=== PATIENT | female | born 1940 | race Caucasian/White ===

== ENCOUNTER 2017-12-13 12:41 | Inpatient (IN) ==
[2017-12-14 14:33] VITALS: BP 114/56
== END 2017-12-14 16:02 | disposition home or self-care (01) | DRG 811 ==
LOC: EDBD → EDUNIT# → N.ED 12:41 → N.EDINP 14:50 → N.4E 16:26
PROVIDERS: ADMIT Internal Medicine; ATTEND Internal Medicine

== ENCOUNTER 2018-05-24 10:46 | Inpatient (IN) ==
[2018-05-24] MEDS ORDERED: ALBUTEROL NEB SOLN 5 MG/ML 20 ML/BOTTLE CONT NEB STA (11:19)
[2018-05-24] MEDS ORDERED: SODIUM CHLORIDE 0.9% 1,000 ML IV SCH (11:30)
[2018-05-24 11:54] LABS: ABG Base Excess 6.7 MMOL/L (-2.5-2.5); ABG HCO3 30.5 MMOL/L (20-26); ABG Oxygen Saturation 96.3 % (95-100); ABG PH 7.305 (7.35-7.45); ABG PO2 97.5 MM HG (80-95); ABG TCO2 32.3 MMOL/L (23-27)
[2018-05-24 12:00] LABS: ABG PCO2 71.4 MM HG (35-48)
[2018-05-24 12:00] LABS: Basophils % 0.3 % (0.0-0.8); Eosinophils % 0.1 % (0.00-10.9); Hematocrit 38.8 VOL% (35.7-47.0); Immature Granulocytes % 2.3 %; Immature Granulocytes Absolute 0.17 #; Mean Corpuscular HGB Conc 29.6 GM/DL (32-36); Mean Corpuscular Hemoglobin 26 PG (27-34); Mean Platelet Volume 10.8 FL (9.6-12.0); Monocytes % 13.8 % (1.7-12.7); NRBC # 0.23 10*3/uL; Neutrophils # 5.2 10*3/uL (1.4-7.4); Neutrophils % 70.5 % (38.7-73.9); Platelet Count 294 T/CUMM (130-400); Red Blood Count 4.36 MC/CUMM (3.8-5.5); Red Cell Distribution Width 20.3 % (9.3-17.3); White Blood Count 7.3 T/CUMM (4-12)
[2018-05-24 12:01] LABS: Hemoglobin 11.5 GM/DL (12.0-16.0)
[2018-05-24 12:18] LABS: Hypochromasia 1+; Lymphocytes 8 % (20-55); Nucleated Red Blood Cells 2 (0-5); Ovalocytes Slight; Platelet Estimate Adequate; Segmented Neutrophils 79 % (50-85); Total Cells Counted 100
[2018-05-24 12:25] LABS: Albumin 3.9 G/DL (3.4-5.0); Bilirubin,Total 1.6 MG/DL (0.2-1.0); Calcium 8.6 MG/DL (8.5-10.1); Potassium 4.1 MMOL/L (3.5-5.1); Total Protein 7.1 G/DL (6.4-8.3)
[2018-05-24] MEDS ORDERED: LACTULOSE 20 GM/30 ML UDCUP PO PRN (14:59)
[2018-05-24] MEDS ORDERED: guaiFENesin/DM ER 600-30 MG TABLET PO PRN (14:59)
[2018-05-24] MEDS ORDERED: DOCUSATE SODIUM 100 MG CAPSULE PO PRN (14:59)
[2018-05-24] MEDS ORDERED: MAGNESIUM SULF RIDER 4 GM in PREMIX 1 EACH IV PRN (15:23)
[2018-05-24] MEDS ORDERED: MAGNESIUM SULF RIDER 2 GM in PREMIX 1 EACH IV PRN (15:23)
[2018-05-24] MEDS ORDERED: hydrALAZINE 20 MG/1 ML VIAL IV PRN (17:59)
[2018-05-24] MEDS: methylPREDNISolone SOD SUC 40 MG/1 ML VIAL IV SCH ×2 (18:00→23:21)
[2018-05-24] MEDS: ENOXAPARIN 40 MG/0.4 ML SYRINGE SUBCUT SCH (18:00)
[2018-05-24] MEDS: ALBUTEROL/IPRATROPIUM 3 ML NEB RESP TX SCH (19:37)
[2018-05-24] MEDS: BUDESONIDE 0.5 MG/2 ML NEB RESP TX SCH (19:37)
[2018-05-24] MEDS: NYSTATIN POWDER 15 GM BOTTLE TOP SCH (23:21)
[2018-05-25] MEDS: ALBUTEROL/IPRATROPIUM 3 ML NEB RESP TX SCH ×4 (00:16→19:22)
[2018-05-25 06:10] LABS: Hematocrit 36.5 VOL% (35.7-47.0); Immature Granulocytes Absolute 0.11 #; Lymphocytes # 0.4 10*3/uL (1.4-4.0); Lymphocytes % 7.3 % (21.3-54.2); Mean Corpuscular HGB Conc 30.1 GM/DL (32-36); Mean Corpuscular Hemoglobin 27 PG (27-34); Mean Corpuscular Volume 88.4 FL (87-102); Mean Platelet Volume 10.5 FL (9.6-12.0); Monocytes # 0.2 10*3/uL (0.11-0.8); Monocytes % 3.6 % (1.7-12.7); NRBC # 0.13 10*3/uL; Neutrophils # 4.9 10*3/uL (1.4-7.4); Neutrophils % 87.1 % (38.7-73.9); Platelet Count 269 T/CUMM (130-400); Red Blood Count 4.13 MC/CUMM (3.8-5.5); Red Cell Distribution Width 20.2 % (9.3-17.3); White Blood Count 5.6 T/CUMM (4-12)
[2018-05-25] MEDS: LEVOTHYROXINE 100 MCG TABLET PO SCH (06:33)
[2018-05-25 06:47] LABS: Albumin 3.3 G/DL (3.4-5.0); Bilirubin,Total 1.4 MG/DL (0.2-1.0); Calcium 8.8 MG/DL (8.5-10.1); Osmolality,Calculated 279.1 MOS/KG (273-304); Risk Ratio 7.81; Thyroid Stimulating Hormone 0.308 uIU/ml (0.358-3.74); Total Protein 6.8 G/DL (6.4-8.3); VLDL CHOLESTEROL 16.8 MG/DL
[2018-05-25] MEDS: BUDESONIDE 0.5 MG/2 ML NEB RESP TX SCH ×2 (07:32→19:22)
[2018-05-25] MEDS: methylPREDNISolone SOD SUC 40 MG/1 ML VIAL IV SCH ×2 (08:40→16:33)
[2018-05-25] MEDS: NYSTATIN POWDER 15 GM BOTTLE TOP SCH ×3 (08:41→20:42)
[2018-05-25] MEDS: LOSARTAN 50 MG TABLET PO SCH (08:41)
[2018-05-25] MEDS: PANTOPRAZOLE 40 MG TABLET PO SCH (08:41)
[2018-05-25] MEDS: ASPIRIN CHEW 81 MG TABLET PO SCH (08:41)
[2018-05-25] MEDS ORDERED: FUROSEMIDE 40 MG/4 ML VIAL IV ONE (10:00)
[2018-05-25] MEDS: THEOPHYLLINE ER (24 HR) 400 MG CAPSULE PO SCH (10:23)
[2018-05-25] MEDS: DIGOXIN 0.125 MG TABLET PO SCH (12:17)
[2018-05-25] MEDS ORDERED: DIAZEPAM 2 MG TABLET PO PRN (14:13)
[2018-05-25] MEDS: FUROSEMIDE 80 MG TABLET PO SCH (14:59)
[2018-05-25] MEDS: ENOXAPARIN 40 MG/0.4 ML SYRINGE SUBCUT SCH (16:33)
[2018-05-25] MEDS: FUROSEMIDE 40 MG TABLET PO SCH (16:33)
[2018-05-26] MEDS: ALBUTEROL/IPRATROPIUM 3 ML NEB RESP TX SCH ×4 (00:27→20:02)
[2018-05-26] MEDS: methylPREDNISolone SOD SUC 40 MG/1 ML VIAL IV SCH ×3 (01:29→16:25)
[2018-05-26 06:02] LABS: Basophils % 0.1 % (0.0-0.8); Hematocrit 36.4 VOL% (35.7-47.0); Immature Granulocytes % 1.3 %; Immature Granulocytes Absolute 0.09 #; Lymphocytes # 0.3 10*3/uL (1.4-4.0); Lymphocytes % 4.2 % (21.3-54.2); Mean Corpuscular HGB Conc 30.2 GM/DL (32-36); Mean Corpuscular Hemoglobin 26 PG (27-34); Mean Corpuscular Volume 86.7 FL (87-102); Mean Platelet Volume 10.2 FL (9.6-12.0); Monocytes # 0.4 10*3/uL (0.11-0.8); Monocytes % 5.5 % (1.7-12.7); NRBC # 0.08 10*3/uL; Neutrophils # 6.3 10*3/uL (1.4-7.4); Neutrophils % 88.9 % (38.7-73.9); Platelet Count 290 T/CUMM (130-400); Red Cell Distribution Width 20.1 % (9.3-17.3); White Blood Count 7.1 T/CUMM (4-12)
[2018-05-26] MEDS: LEVOTHYROXINE 100 MCG TABLET PO SCH (06:22)
[2018-05-26 06:27] LABS: Albumin 3.4 G/DL (3.4-5.0); Bilirubin,Total 1.6 MG/DL (0.2-1.0); Calcium 9.1 MG/DL (8.5-10.1); Osmolality,Calculated 280.8 MOS/KG (273-304); Potassium 2.9 MMOL/L (3.5-5.1); Total Protein 6.6 G/DL (6.4-8.3)
[2018-05-26 06:29] LABS: Anisocytosis 2+; Band Neutrophils 7 % (0-10); Lymphocytes 5 % (20-55); Nucleated Red Blood Cells 1 (0-5); Platelet Estimate Normal; Segmented Neutrophils 84 % (50-85); Target Cells Few; Total Cells Counted 100
[2018-05-26 06:30] LABS: Hypochromasia Slight; Macrocytosis Slight; Polychromasia Slight
[2018-05-26] MEDS: BUDESONIDE 0.5 MG/2 ML NEB RESP TX SCH ×2 (08:35→20:03)
[2018-05-26] MEDS: POTASSIUM CHLORIDE 20 MEQ TABLET PO PRN ×4 (08:48→16:25)
[2018-05-26] MEDS: ASPIRIN CHEW 81 MG TABLET PO SCH (08:48)
[2018-05-26] MEDS: LOSARTAN 50 MG TABLET PO SCH (08:48)
[2018-05-26] MEDS: PANTOPRAZOLE 40 MG TABLET PO SCH (08:48)
[2018-05-26] MEDS: FUROSEMIDE 80 MG TABLET PO SCH (08:48)
[2018-05-26] MEDS: THEOPHYLLINE ER (24 HR) 400 MG CAPSULE PO SCH (08:48)
[2018-05-26] MEDS: NYSTATIN POWDER 15 GM BOTTLE TOP SCH ×3 (08:49→21:39)
[2018-05-26] MEDS: DIGOXIN 0.125 MG TABLET PO SCH (13:24)
[2018-05-26] MEDS ORDERED: DIAZEPAM 2 MG TABLET PO PRN (15:37)
[2018-05-26] MEDS: ENOXAPARIN 40 MG/0.4 ML SYRINGE SUBCUT SCH (16:25)
[2018-05-26] MEDS: FUROSEMIDE 40 MG TABLET PO SCH (16:25)
[2018-05-27] MEDS: methylPREDNISolone SOD SUC 40 MG/1 ML VIAL IV SCH ×3 (01:15→16:36)
[2018-05-27] MEDS: ALBUTEROL/IPRATROPIUM 3 ML NEB RESP TX SCH ×4 (01:28→19:47)
[2018-05-27 05:26] LABS: Hemoglobin 11.1 GM/DL (12.0-16.0); Immature Granulocytes % 0.6 %; Immature Granulocytes Absolute 0.06 #; Lymphocytes # 0.3 10*3/uL (1.4-4.0); Lymphocytes % 2.6 % (21.3-54.2); Mean Corpuscular Hemoglobin 26 PG (27-34); Mean Corpuscular Volume 87.5 FL (87-102); Mean Platelet Volume 10.4 FL (9.6-12.0); Monocytes # 0.5 10*3/uL (0.11-0.8); Monocytes % 5.1 % (1.7-12.7); NRBC # 0.05 10*3/uL; Neutrophils # 9.2 10*3/uL (1.4-7.4); Neutrophils % 91.7 % (38.7-73.9); Platelet Count 290 T/CUMM (130-400); Red Blood Count 4.23 MC/CUMM (3.8-5.5); Red Cell Distribution Width 20.8 % (9.3-17.3)
[2018-05-27 05:51] LABS: Hypochromasia Slight; Lymphocytes 1 % (20-55); Nucleated Red Blood Cells 1 (0-5); Platelet Estimate Normal; Polychromasia Few; Segmented Neutrophils 97 % (50-85); Total Cells Counted 100
[2018-05-27 06:01] LABS: Albumin 3.3 G/DL (3.4-5.0); Bilirubin,Total 1.4 MG/DL (0.2-1.0); Potassium 3.4 MMOL/L (3.5-5.1); Total Protein 6.3 G/DL (6.4-8.3)
[2018-05-27] MEDS: LEVOTHYROXINE 100 MCG TABLET PO SCH (06:05)
[2018-05-27] MEDS: THEOPHYLLINE ER (24 HR) 400 MG CAPSULE PO SCH (08:29)
[2018-05-27] MEDS: LOSARTAN 50 MG TABLET PO SCH (08:29)
[2018-05-27] MEDS: NYSTATIN POWDER 15 GM BOTTLE TOP SCH ×3 (08:29→22:18)
[2018-05-27] MEDS: PANTOPRAZOLE 40 MG TABLET PO SCH (08:29)
[2018-05-27] MEDS: POTASSIUM CHLORIDE 20 MEQ TABLET PO PRN ×4 (08:29→22:10)
[2018-05-27] MEDS: FUROSEMIDE 80 MG TABLET PO SCH (08:29)
[2018-05-27] MEDS: ASPIRIN CHEW 81 MG TABLET PO SCH (08:29)
[2018-05-27] MEDS: BUDESONIDE 0.5 MG/2 ML NEB RESP TX SCH ×2 (08:31→19:47)
[2018-05-27 10:59] LABS: ABG Base Excess 7.7 MMOL/L (-2.5-2.5); ABG HCO3 31.2 MMOL/L (20-26); ABG Oxygen Saturation 82.5 % (95-100); ABG PCO2 51.7 MM HG (35-48); ABG PH 7.422 (7.35-7.45); ABG PO2 47.7 MM HG (80-95); ABG TCO2 30.1 MMOL/L (23-27)
[2018-05-27] MEDS: ONDANSETRON 4 MG/2 ML VIAL IV PRN (11:01)
[2018-05-27] MEDS: DIGOXIN 0.125 MG TABLET PO SCH (14:00)
[2018-05-27] MEDS: FUROSEMIDE 40 MG TABLET PO SCH (16:36)
[2018-05-27] MEDS: ENOXAPARIN 40 MG/0.4 ML SYRINGE SUBCUT SCH (16:36)
[2018-05-27] MEDS ORDERED: FLUCONAZOLE 200 MG TABLET PO ONE (19:00)
[2018-05-28] MEDS: methylPREDNISolone SOD SUC 40 MG/1 ML VIAL IV SCH ×4 (00:03→16:49)
[2018-05-28] MEDS: ALBUTEROL/IPRATROPIUM 3 ML NEB RESP TX SCH ×4 (00:22→19:34)
[2018-05-28] MEDS: LEVOTHYROXINE 100 MCG TABLET PO SCH (06:37)
[2018-05-28] MEDS: BUDESONIDE 0.5 MG/2 ML NEB RESP TX SCH ×2 (07:51→19:34)
[2018-05-28 08:28] LABS: Calcium 8.9 MG/DL (8.5-10.1); Osmolality,Calculated 287.4 MOS/KG (273-304); Potassium 3.9 MMOL/L (3.5-5.1)
[2018-05-28] MEDS: PANTOPRAZOLE 40 MG TABLET PO SCH (08:28)
[2018-05-28] MEDS: LOSARTAN 50 MG TABLET PO SCH (08:28)
[2018-05-28] MEDS: NYSTATIN POWDER 15 GM BOTTLE TOP SCH ×3 (08:28→22:06)
[2018-05-28] MEDS: THEOPHYLLINE ER (24 HR) 400 MG CAPSULE PO SCH (08:28)
[2018-05-28] MEDS: SERTRALINE 50 MG TABLET PO SCH (08:28)
[2018-05-28] MEDS: FLUCONAZOLE 200 MG TABLET PO SCH (08:28)
[2018-05-28] MEDS: ASPIRIN CHEW 81 MG TABLET PO SCH (08:28)
[2018-05-28] MEDS: FUROSEMIDE 80 MG TABLET PO SCH (08:29)
[2018-05-28 08:34] LABS: Hematocrit 36.8 VOL% (35.7-47.0); Hemoglobin 11.2 GM/DL (12.0-16.0); Immature Granulocytes % 0.9 %; Immature Granulocytes Absolute 0.09 #; Lymphocytes # 0.2 10*3/uL (1.4-4.0); Lymphocytes % 2.1 % (21.3-54.2); Mean Corpuscular HGB Conc 30.4 GM/DL (32-36); Mean Corpuscular Hemoglobin 27 PG (27-34); Mean Corpuscular Volume 87.2 FL (87-102); Mean Platelet Volume 10.4 FL (9.6-12.0); Monocytes # 0.6 10*3/uL (0.11-0.8); Monocytes % 6.5 % (1.7-12.7); NRBC # 0.06 10*3/uL; Neutrophils # 8.8 10*3/uL (1.4-7.4); Neutrophils % 90.5 % (38.7-73.9); Platelet Count 280 T/CUMM (130-400); Red Blood Count 4.22 MC/CUMM (3.8-5.5); Red Cell Distribution Width 20.5 % (9.3-17.3); White Blood Count 9.7 T/CUMM (4-12)
[2018-05-28 09:49] LABS: Lymphocytes 2 % (20-55); Polychromasia Slight; Segmented Neutrophils 95 % (50-85); Total Cells Counted 100
[2018-05-28 09:50] LABS: Anisocytosis 1+; Hypochromasia 2+; Microcytosis 1+; Ovalocytes Few; Poikilocytosis 1+; Target Cells Slight
[2018-05-28 09:51] LABS: Platelet Estimate Adequate; Schistocytes Slight; Stomatocytes Slight; Tear Drop Cells Slight
[2018-05-28] MEDS: DIGOXIN 0.125 MG TABLET PO SCH (14:55)
[2018-05-28] MEDS: ENOXAPARIN 40 MG/0.4 ML SYRINGE SUBCUT SCH (14:59)
[2018-05-28] MEDS ORDERED: ALPRAZolam 0.25 MG TABLET PO PRN (15:20)
[2018-05-28] MEDS: DICLOFENAC 1% GEL 100 GM TUBE TOP SCH ×2 (18:22→22:06)
[2018-05-29] MEDS: ALBUTEROL/IPRATROPIUM 3 ML NEB RESP TX SCH ×4 (01:20→19:23)
[2018-05-29] MEDS: methylPREDNISolone SOD SUC 40 MG/1 ML VIAL IV SCH ×2 (04:35→16:19)
[2018-05-29 05:49] LABS: Basophils % 0.1 % (0.0-0.8); Hematocrit 38.9 VOL% (35.7-47.0); Hemoglobin 11.7 GM/DL (12.0-16.0); Immature Granulocytes Absolute 0.11 #; Lymphocytes # 0.2 10*3/uL (1.4-4.0); Lymphocytes % 1.8 % (21.3-54.2); Mean Corpuscular HGB Conc 30.1 GM/DL (32-36); Mean Corpuscular Hemoglobin 26 PG (27-34); Mean Corpuscular Volume 87.8 FL (87-102); Mean Platelet Volume 10.3 FL (9.6-12.0); Monocytes # 0.7 10*3/uL (0.11-0.8); Monocytes % 5.8 % (1.7-12.7); NRBC # 0.06 10*3/uL; Neutrophils # 10.2 10*3/uL (1.4-7.4); Neutrophils % 91.3 % (38.7-73.9); Platelet Count 280 T/CUMM (130-400); Red Blood Count 4.43 MC/CUMM (3.8-5.5); Red Cell Distribution Width 20.6 % (9.3-17.3); White Blood Count 11.1 T/CUMM (4-12)
[2018-05-29 06:08] LABS: Calcium 9.3 MG/DL (8.5-10.1); Osmolality,Calculated 288.4 MOS/KG (273-304); Potassium 3.5 MMOL/L (3.5-5.1)
[2018-05-29 06:27] LABS: Band Neutrophils 3 % (0-10); Hypochromasia 1+; Lymphocytes 1 % (20-55); Segmented Neutrophils 92 % (50-85); Target Cells Slight; Total Cells Counted 100
[2018-05-29 06:28] LABS: Microcytosis 1+; Ovalocytes Slight; Platelet Estimate Normal
[2018-05-29 06:46] LABS: Theophylline 22.4 UG/ML (10-20)
[2018-05-29] MEDS: BUDESONIDE 0.5 MG/2 ML NEB RESP TX SCH ×2 (07:53→19:23)
[2018-05-29] MEDS: ASPIRIN CHEW 81 MG TABLET PO SCH (09:07)
[2018-05-29] MEDS: LOSARTAN 50 MG TABLET PO SCH (09:07)
[2018-05-29] MEDS: THEOPHYLLINE ER (24 HR) 400 MG CAPSULE PO SCH (09:08)
[2018-05-29] MEDS: FLUCONAZOLE 200 MG TABLET PO SCH (09:09)
[2018-05-29] MEDS: PANTOPRAZOLE 40 MG TABLET PO SCH (09:09)
[2018-05-29] MEDS: LEVOTHYROXINE 100 MCG TABLET PO SCH (09:09)
[2018-05-29] MEDS: LIDOCAINE 5% PATCH TRANSDERM SCH (09:10)
[2018-05-29] MEDS: NYSTATIN POWDER 15 GM BOTTLE TOP SCH ×3 (09:12→21:20)
[2018-05-29] MEDS: SERTRALINE 50 MG TABLET PO SCH (09:13)
[2018-05-29] MEDS: DICLOFENAC 1% GEL 100 GM TUBE TOP SCH ×4 (09:15→21:19)
[2018-05-29] MEDS: DIGOXIN 0.125 MG TABLET PO SCH (13:34)
[2018-05-29] MEDS ORDERED: SODIUM CHLORIDE 0.9% 250 ML IV ONE (14:22)
[2018-05-29] MEDS: FUROSEMIDE 40 MG/5 ML UDCUP PO SCH (15:04)
[2018-05-29] MEDS: ENOXAPARIN 40 MG/0.4 ML SYRINGE SUBCUT SCH (15:07)
[2018-05-30] MEDS: ALBUTEROL/IPRATROPIUM 3 ML NEB RESP TX SCH ×4 (01:06→19:30)
[2018-05-30] MEDS: methylPREDNISolone SOD SUC 40 MG/1 ML VIAL IV SCH (04:30)
[2018-05-30 05:26] LABS: Calcium 8.7 MG/DL (8.5-10.1); Osmolality,Calculated 291.5 MOS/KG (273-304); Potassium 3.7 MMOL/L (3.5-5.1)
[2018-05-30 05:40] LABS: Basophils % 0.1 % (0.0-0.8); Hematocrit 39.9 VOL% (35.7-47.0); Immature Granulocytes % 1.2 %; Immature Granulocytes Absolute 0.14 #; Lymphocytes # 0.2 10*3/uL (1.4-4.0); Lymphocytes % 1.8 % (21.3-54.2); Mean Corpuscular HGB Conc 29.6 GM/DL (32-36); Mean Corpuscular Hemoglobin 26 PG (27-34); Mean Corpuscular Volume 87.9 FL (87-102); Mean Platelet Volume 10.7 FL (9.6-12.0); Monocytes # 1.2 10*3/uL (0.11-0.8); Monocytes % 10.7 % (1.7-12.7); NRBC # 0.03 10*3/uL; Neutrophils % 86.2 % (38.7-73.9); Platelet Count 270 T/CUMM (130-400); Red Blood Count 4.54 MC/CUMM (3.8-5.5); Red Cell Distribution Width 20.5 % (9.3-17.3); White Blood Count 11.6 T/CUMM (4-12)
[2018-05-30 05:42] LABS: Hemoglobin 11.9 GM/DL (12.0-16.0)
[2018-05-30 06:01] LABS: Anisocytosis 2+; Band Neutrophils 4 % (0-10); Lymphocytes 2 % (20-55); Nucleated Red Blood Cells 1 (0-5); Platelet Estimate Normal; Segmented Neutrophils 89 % (50-85); Target Cells Few; Total Cells Counted 100
[2018-05-30] MEDS: LEVOTHYROXINE 100 MCG TABLET PO SCH (07:12)
[2018-05-30] MEDS: BUDESONIDE 0.5 MG/2 ML NEB RESP TX SCH ×2 (07:49→19:30)
[2018-05-30] MEDS: FUROSEMIDE 40 MG/5 ML UDCUP PO SCH (08:41)
[2018-05-30] MEDS: PANTOPRAZOLE 40 MG TABLET PO SCH (08:42)
[2018-05-30] MEDS: LOSARTAN 50 MG TABLET PO SCH (08:42)
[2018-05-30] MEDS: SERTRALINE 50 MG TABLET PO SCH (08:42)
[2018-05-30] MEDS: LIDOCAINE 5% PATCH TRANSDERM SCH (08:42)
[2018-05-30] MEDS: FLUCONAZOLE 200 MG TABLET PO SCH (08:42)
[2018-05-30] MEDS: ASPIRIN CHEW 81 MG TABLET PO SCH (08:42)
[2018-05-30] MEDS: DICLOFENAC 1% GEL 100 GM TUBE TOP SCH ×4 (08:43→21:55)
[2018-05-30] MEDS: NYSTATIN POWDER 15 GM BOTTLE TOP SCH ×3 (08:43→15:23)
[2018-05-30] MEDS ORDERED: SODIUM CHLORIDE 0.9% 1,000 ML IV SCH (09:30)
[2018-05-30] MEDS: predniSONE 20 MG TABLET PO SCH (10:31)
[2018-05-30] MEDS: NEBIVOLOL 5 MG TABLET PO SCH (10:31)
[2018-05-30] MEDS: DIGOXIN 0.125 MG TABLET PO SCH (12:16)
[2018-05-30] MEDS: SODIUM CHLORIDE 0.9% 1,000 ML IV SCH (13:27)
[2018-05-30] MEDS: ONDANSETRON 4 MG/2 ML VIAL IV PRN ×2 (15:04→22:35)
[2018-05-30] MEDS: ENOXAPARIN 40 MG/0.4 ML SYRINGE SUBCUT SCH (15:05)
[2018-05-31] MEDS: ALBUTEROL/IPRATROPIUM 3 ML NEB RESP TX SCH ×3 (00:51→13:12)
[2018-05-31] MEDS: SODIUM CHLORIDE 0.9% 1,000 ML IV SCH (01:02)
[2018-05-31 05:22] LABS: Calcium 8.4 MG/DL (8.5-10.1); Potassium 3.6 MMOL/L (3.5-5.1)
[2018-05-31 05:43] LABS: Basophils % 0.1 % (0.0-0.8); Hematocrit 37.6 VOL% (35.7-47.0); Hemoglobin 11.3 GM/DL (12.0-16.0); Immature Granulocytes % 1.3 %; Immature Granulocytes Absolute 0.15 #; Lymphocytes # 0.2 10*3/uL (1.4-4.0); Lymphocytes % 1.9 % (21.3-54.2); Mean Corpuscular HGB Conc 30.1 GM/DL (32-36); Mean Corpuscular Hemoglobin 26 PG (27-34); Mean Corpuscular Volume 86.6 FL (87-102); Mean Platelet Volume 11.2 FL (9.6-12.0); Monocytes # 1.1 10*3/uL (0.11-0.8); Monocytes % 9.3 % (1.7-12.7); NRBC # 0.02 10*3/uL; Neutrophils % 87.4 % (38.7-73.9); Platelet Count 222 T/CUMM (130-400); Red Blood Count 4.34 MC/CUMM (3.8-5.5); Red Cell Distribution Width 20.1 % (9.3-17.3); White Blood Count 11.4 T/CUMM (4-12)
[2018-05-31 05:53] LABS: Lymphocytes 5 % (20-55); Platelet Estimate Normal; Polychromasia Few; Segmented Neutrophils 92 % (50-85); Total Cells Counted 100
[2018-05-31] MEDS: LEVOTHYROXINE 100 MCG TABLET PO SCH (06:28)
[2018-05-31] MEDS: BUDESONIDE 0.5 MG/2 ML NEB RESP TX SCH (07:00)
[2018-05-31] MEDS: SERTRALINE 50 MG TABLET PO SCH (08:33)
[2018-05-31] MEDS: predniSONE 20 MG TABLET PO SCH (08:34)
[2018-05-31] MEDS: ASPIRIN CHEW 81 MG TABLET PO SCH (08:34)
[2018-05-31] MEDS: LOSARTAN 50 MG TABLET PO SCH (08:34)
[2018-05-31] MEDS: NEBIVOLOL 5 MG TABLET PO SCH (08:34)
[2018-05-31] MEDS: LIDOCAINE 5% PATCH TRANSDERM SCH (08:35)
[2018-05-31] MEDS: NYSTATIN POWDER 15 GM BOTTLE TOP SCH (08:36)
[2018-05-31] MEDS: DICLOFENAC 1% GEL 100 GM TUBE TOP SCH (08:36)
[2018-05-31] MEDS: PANTOPRAZOLE 40 MG TABLET PO SCH (08:36)
[2018-05-31] MEDS ORDERED: POTASSIUM CHLORIDE 20 MEQ PACK PO ONE (08:58)
[2018-05-31] MEDS ORDERED: NEBIVOLOL 10 MG TABLET PO SCH (09:00)
[2018-05-31] MEDS ORDERED: amLODIPine 5 MG TABLET PO SCH (10:30)
[2018-05-31 11:05] LABS: Allen Test Positive
[2018-05-31 11:06] LABS: ABG Base Excess 6.8 MMOL/L (-2.5-2.5); ABG HCO3 30.4 MMOL/L (20-26); ABG PCO2 57.8 MM HG (35-48); ABG PH 7.375 (7.35-7.45); ABG PO2 59.4 MM HG (80-95); ABG TCO2 30.2 MMOL/L (23-27)
[2018-05-31 13:19] VITALS: BP 146/61
[2018-05-31] MEDS: DIGOXIN 0.125 MG TABLET PO SCH (14:23)
[2018-05-31] MEDS ORDERED: FUROSEMIDE 40 MG TABLET PO SCH (16:00)
[2018-05-31] MEDS ORDERED: RIVAROXABAN 10 MG TABLET PO SCH (17:00)
== END 2018-05-31 15:40 | disposition swing bed (61) | DRG 291 ==
LOC: EDBD → EDUNIT# → N.ED 10:46 → N.5E 14:59 → SUATTDRO 14:59 → N.5E 18:41
PROVIDERS: ADMIT Internal Medicine; ATTEND Internal Medicine

== ENCOUNTER 2018-05-31 19:59 | Inpatient (IN) ==
[2018-05-31 20:46] LABS: Basophils % 0.1 % (0.0-0.8); Hematocrit 38.4 VOL% (35.7-47.0); Hemoglobin 11.7 GM/DL (12.0-16.0); Immature Granulocytes % 1.3 %; Immature Granulocytes Absolute 0.25 #; Lymphocytes # 0.3 10*3/uL (1.4-4.0); Lymphocytes % 1.8 % (21.3-54.2); Mean Corpuscular HGB Conc 30.5 GM/DL (32-36); Mean Corpuscular Hemoglobin 27 PG (27-34); Mean Corpuscular Volume 88.1 FL (87-102); Mean Platelet Volume 10.9 FL (9.6-12.0); Monocytes # 1.8 10*3/uL (0.11-0.8); Monocytes % 9.1 % (1.7-12.7); Neutrophils % 87.7 % (38.7-73.9); Platelet Count 184 T/CUMM (130-400); Red Blood Count 4.36 MC/CUMM (3.8-5.5); Red Cell Distribution Width 20.4 % (9.3-17.3); White Blood Count 19.4 T/CUMM (4-12)
[2018-05-31 20:55] LABS: ABG Base Excess 6.3 MMOL/L (-2.5-2.5); ABG HCO3 29.8 MMOL/L (20-26); ABG Oxygen Saturation 83.7 % (95-100); ABG PCO2 44.8 MM HG (35-48); ABG PO2 48.1 MM HG (80-95); ABG TCO2 27.6 MMOL/L (23-27); Allen Test Positive
[2018-05-31 20:57] LABS: INR 1.1; PT Patient Result 11.8 SECS
[2018-05-31 21:13] LABS: Lymphocytes 3 % (20-55); Segmented Neutrophils 93 % (50-85); Total Cells Counted 100
[2018-05-31 21:16] LABS: Platelet Estimate Normal
[2018-05-31 21:18] LABS: Albumin 2.9 G/DL (3.4-5.0); Bilirubin,Total 1.5 MG/DL (0.2-1.0); Calcium 8.2 MG/DL (8.5-10.1); Osmolality,Calculated 295.8 MOS/KG (273-304); Ovalocytes Few; Potassium 3.6 MMOL/L (3.5-5.1); Total Protein 5.3 G/DL (6.4-8.3)
[2018-05-31 21:19] LABS: Anisocytosis 1+
[2018-05-31 21:20] LABS: Hypochromasia 1+
[2018-05-31 21:38] LABS: Apearance,Urine Slightly Hazy (Clear); Bacteria,Urine Occasional /HPF (Few); Bilirubin,Urine Negative (Negative); Blood, Urine Negative (Negative); Glucose,Urine (UA) Negative (Negative); Hyaline Casts,Urine 1 /LPF (0-3); Ketones,Urine Negative (Negative); Nitrite,Urine Negative (Negative); Protein,Urine Negative; RBC,Urine 1 /HPF (0-4); Squamous Epithelial Cell,Urine Occasional /HPF (0-10); Urine Color Yellow (Yellow); Urine Specific Gravity 1.019 (1.001-1.035); WBC,Urine 2 /HPF (0-6)
[2018-05-31] MEDS ORDERED: FUROSEMIDE 40 MG/4 ML VIAL IV STA (21:42)
[2018-05-31] MEDS ORDERED: ACETAMINOPHEN 325 MG TABLET PO PRN (23:27)
[2018-05-31] MEDS ORDERED: ONDANSETRON 4 MG/2 ML VIAL IV PRN (23:27)
[2018-05-31] MEDS ORDERED: LACTULOSE 20 GM/30 ML UDCUP PO PRN (23:39)
[2018-05-31] MEDS ORDERED: ALPRAZolam 0.25 MG TABLET PO PRN (23:39)
[2018-05-31] MEDS ORDERED: DOCUSATE SODIUM 100 MG CAPSULE PO PRN (23:39)
[2018-06-01] MEDS: ALBUTEROL/IPRATROPIUM 3 ML NEB RESP TX SCH ×4 (00:18→20:26)
[2018-06-01] MEDS ORDERED: LEVOFLOXACIN INJ 500 MG in PREMIX 1 EACH IV ONE (00:30)
[2018-06-01] MEDS: methylPREDNISolone SOD SUC 40 MG/1 ML VIAL IV SCH ×2 (01:06→12:48)
[2018-06-01] MEDS: cefTRIAXone 1,000 MG in SYRINGE 1 EACH IV SCH (01:10)
[2018-06-01 02:19] LABS: Troponin I 0.132 NG/ML (0.00-0.045)
[2018-06-01 04:34] LABS: ABG Base Excess 8.1 MMOL/L (-2.5-2.5); ABG HCO3 31.7 MMOL/L (20-26); ABG Oxygen Saturation 91.6 % (95-100); ABG PCO2 60.5 MM HG (35-48); ABG PH 7.378 (7.35-7.45); ABG PO2 65.1 MM HG (80-95); ABG TCO2 31.5 MMOL/L (23-27); Allen Test Positive; Pt O2 Delivery Device Venturi Mask
[2018-06-01 04:46] LABS: Basophils % 0.2 % (0.0-0.8); Immature Granulocytes % 1.2 %; Immature Granulocytes Absolute 0.21 #; Lymphocytes # 0.2 10*3/uL (1.4-4.0); Lymphocytes % 1.2 % (21.3-54.2); Mean Corpuscular HGB Conc 29.8 GM/DL (32-36); Mean Corpuscular Hemoglobin 26 PG (27-34); Mean Corpuscular Volume 88.3 FL (87-102); Mean Platelet Volume 10.4 FL (9.6-12.0); Monocytes # 0.9 10*3/uL (0.11-0.8); Monocytes % 4.7 % (1.7-12.7); Neutrophils # 16.9 10*3/uL (1.4-7.4); Neutrophils % 92.7 % (38.7-73.9); Platelet Count 180 T/CUMM (130-400); Red Blood Count 4.53 MC/CUMM (3.8-5.5); Red Cell Distribution Width 20.7 % (9.3-17.3); White Blood Count 18.2 T/CUMM (4-12)
[2018-06-01 04:54] LABS: Hematocrit 39.8 VOL% (35.7-47.0)
[2018-06-01 05:09] LABS: Alanine Aminotransferase 63 U/L (13-56); Albumin 2.8 G/DL (3.4-5.0); Alkaline Phosphatase 99 U/L (45-117); Aspartate Amino Transferase 27 U/L (0-37); Blood Urea Nitrogen 37 MG/DL (7-18); Calcium 8.2 MG/DL (8.5-10.1); Glucose 105 MG/DL (74-106); Osmolality,Calculated 291.1 MOS/KG (273-304); Potassium 3.4 MMOL/L (3.5-5.1); Sodium 142 MMOL/L (136-145); Total Protein 5.9 G/DL (6.4-8.3); Troponin I 0.135 NG/ML (0.00-0.045)
[2018-06-01 05:27] LABS: Hypochromasia 1+; Lymphocytes 1 % (20-55); Segmented Neutrophils 96 % (50-85); Total Cells Counted 100
[2018-06-01 05:28] LABS: Microcytosis 1+; Ovalocytes Slight; Target Cells Slight
[2018-06-01 05:29] LABS: Platelet Estimate Adequate
[2018-06-01] MEDS: POTASSIUM CHLORIDE 20 MEQ TABLET PO PRN ×3 (06:09→14:48)
[2018-06-01] MEDS: LEVOTHYROXINE 100 MCG TABLET PO SCH (06:09)
[2018-06-01] MEDS ORDERED: NEBIVOLOL 5 MG TABLET PO SCH (09:00)
[2018-06-01] MEDS: FUROSEMIDE 40 MG/4 ML VIAL IV SCH ×2 (09:17→17:17)
[2018-06-01] MEDS: ASPIRIN CHEW 81 MG TABLET PO SCH (09:54)
[2018-06-01] MEDS: SERTRALINE 50 MG TABLET PO SCH (09:54)
[2018-06-01] MEDS: PANTOPRAZOLE 40 MG TABLET PO SCH (09:54)
[2018-06-01] MEDS: LOSARTAN 50 MG TABLET PO SCH (09:54)
[2018-06-01] MEDS: BUDESONIDE/FORMOTEROL 160-4.5 INHALER 6 GM INH SCH ×2 (09:59→21:19)
[2018-06-01] MEDS: LIDOCAINE 5% PATCH TRANSDERM SCH (09:59)
[2018-06-01] MEDS ORDERED: NEBIVOLOL 5 MG TABLET PO ONE (11:05)
[2018-06-01] MEDS: amLODIPine 5 MG TABLET PO SCH (13:50)
[2018-06-01] MEDS: DIGOXIN 0.125 MG TABLET PO SCH (13:51)
[2018-06-01] MEDS: RIVAROXABAN 10 MG TABLET PO SCH (21:17)
[2018-06-02] MEDS: ALBUTEROL/IPRATROPIUM 3 ML NEB RESP TX SCH ×4 (00:10→19:47)
[2018-06-02] MEDS: methylPREDNISolone SOD SUC 40 MG/1 ML VIAL IV SCH ×2 (00:45→12:52)
[2018-06-02] MEDS: cefTRIAXone 1,000 MG in SYRINGE 1 EACH IV SCH (00:46)
[2018-06-02] MEDS: LEVOFLOXACIN INJ 250 MG in PREMIX 1 EACH IV SCH (00:46)
[2018-06-02 04:06] LABS: Basophils % 0.1 % (0.0-0.8); Hematocrit 39.5 VOL% (35.7-47.0); Hemoglobin 11.9 GM/DL (12.0-16.0); Immature Granulocytes % 1.4 %; Immature Granulocytes Absolute 0.17 #; Lymphocytes # 0.2 10*3/uL (1.4-4.0); Lymphocytes % 1.6 % (21.3-54.2); Mean Corpuscular HGB Conc 30.1 GM/DL (32-36); Mean Corpuscular Hemoglobin 26 PG (27-34); Mean Corpuscular Volume 87.8 FL (87-102); Mean Platelet Volume 10.9 FL (9.6-12.0); Monocytes # 0.5 10*3/uL (0.11-0.8); Monocytes % 4.4 % (1.7-12.7); Neutrophils # 10.9 10*3/uL (1.4-7.4); Neutrophils % 92.5 % (38.7-73.9); Platelet Count 177 T/CUMM (130-400); Red Cell Distribution Width 20.2 % (9.3-17.3); White Blood Count 11.8 T/CUMM (4-12)
[2018-06-02 04:31] LABS: Calcium 8.6 MG/DL (8.5-10.1); Osmolality,Calculated 294.1 MOS/KG (273-304)
[2018-06-02 05:06] LABS: Lymphocytes 2 % (20-55); Platelet Estimate Normal; Segmented Neutrophils 95 % (50-85); Total Cells Counted 100
[2018-06-02] MEDS: LEVOTHYROXINE 100 MCG TABLET PO SCH (06:00)
[2018-06-02] MEDS ORDERED: ENOXAPARIN 40 MG/0.4 ML SYRINGE SUBCUT SCH (09:00)
[2018-06-02] MEDS: LOSARTAN 50 MG TABLET PO SCH (09:05)
[2018-06-02] MEDS: NEBIVOLOL 10 MG TABLET PO SCH (09:05)
[2018-06-02] MEDS: SERTRALINE 50 MG TABLET PO SCH (09:05)
[2018-06-02] MEDS: PANTOPRAZOLE 40 MG TABLET PO SCH (09:06)
[2018-06-02] MEDS: amLODIPine 5 MG TABLET PO SCH (09:06)
[2018-06-02] MEDS: ASPIRIN CHEW 81 MG TABLET PO SCH (09:06)
[2018-06-02] MEDS: BUDESONIDE/FORMOTEROL 160-4.5 INHALER 6 GM INH SCH ×2 (09:07→21:02)
[2018-06-02] MEDS: LIDOCAINE 5% PATCH TRANSDERM SCH (09:08)
[2018-06-02] MEDS: FUROSEMIDE 40 MG/4 ML VIAL IV SCH ×2 (09:11→16:18)
[2018-06-02] MEDS: DIGOXIN 0.125 MG TABLET PO SCH (12:50)
[2018-06-02] MEDS: RIVAROXABAN 10 MG TABLET PO SCH (21:01)
[2018-06-03] MEDS: methylPREDNISolone SOD SUC 40 MG/1 ML VIAL IV SCH ×3 (00:11→23:40)
[2018-06-03] MEDS: cefTRIAXone 1,000 MG in SYRINGE 1 EACH IV SCH (00:16)
[2018-06-03] MEDS: LEVOFLOXACIN INJ 250 MG in PREMIX 1 EACH IV SCH ×2 (00:18→23:41)
[2018-06-03] MEDS: ALBUTEROL/IPRATROPIUM 3 ML NEB RESP TX SCH ×3 (01:17→19:38)
[2018-06-03 04:04] LABS: Basophils % 0.1 % (0.0-0.8); Hematocrit 39.3 VOL% (35.7-47.0); Immature Granulocytes % 1.7 %; Immature Granulocytes Absolute 0.19 #; Lymphocytes # 0.3 10*3/uL (1.4-4.0); Lymphocytes % 2.4 % (21.3-54.2); Mean Corpuscular HGB Conc 30.5 GM/DL (32-36); Mean Corpuscular Hemoglobin 27 PG (27-34); Mean Corpuscular Volume 87.5 FL (87-102); Mean Platelet Volume 11.1 FL (9.6-12.0); Monocytes # 0.6 10*3/uL (0.11-0.8); Neutrophils % 90.8 % (38.7-73.9); Platelet Count 181 T/CUMM (130-400); Red Blood Count 4.49 MC/CUMM (3.8-5.5); Red Cell Distribution Width 20.1 % (9.3-17.3)
[2018-06-03 04:22] LABS: Osmolality,Calculated 295.3 MOS/KG (273-304); Potassium 4.1 MMOL/L (3.5-5.1)
[2018-06-03 05:09] LABS: Hypochromasia 1+; Lymphocytes 3 % (20-55); Microcytosis Slight; Platelet Estimate Adequate; Segmented Neutrophils 92 % (50-85); Total Cells Counted 100
[2018-06-03] MEDS: LEVOTHYROXINE 100 MCG TABLET PO SCH (06:19)
[2018-06-03] MEDS: PANTOPRAZOLE 40 MG TABLET PO SCH (09:21)
[2018-06-03] MEDS: SERTRALINE 50 MG TABLET PO SCH (09:21)
[2018-06-03] MEDS: FUROSEMIDE 40 MG/4 ML VIAL IV SCH ×2 (09:21→15:13)
[2018-06-03] MEDS: amLODIPine 5 MG TABLET PO SCH (09:22)
[2018-06-03] MEDS: ASPIRIN CHEW 81 MG TABLET PO SCH (09:22)
[2018-06-03] MEDS: NEBIVOLOL 10 MG TABLET PO SCH (09:22)
[2018-06-03] MEDS: LOSARTAN 50 MG TABLET PO SCH (09:22)
[2018-06-03] MEDS: LIDOCAINE 5% PATCH TRANSDERM SCH (09:23)
[2018-06-03] MEDS: BUDESONIDE/FORMOTEROL 160-4.5 INHALER 6 GM INH SCH ×2 (09:26→20:21)
[2018-06-03] MEDS: DIGOXIN 0.125 MG TABLET PO SCH (15:13)
[2018-06-03] MEDS: LIDOCAINE 2% VISCOUS 100 ML BOTTLE SWISH/SWAL PRN (17:27)
[2018-06-03] MEDS: NYSTATIN 500,000 UNIT/5 ML UDCUP SWISH/SWAL SCH ×2 (17:29→20:21)
[2018-06-03] MEDS: RIVAROXABAN 10 MG TABLET PO SCH (20:21)
[2018-06-04] MEDS: ALBUTEROL/IPRATROPIUM 3 ML NEB RESP TX SCH ×4 (00:38→19:10)
[2018-06-04 04:41] LABS: Calcium 8.3 MG/DL (8.5-10.1); Osmolality,Calculated 290.5 MOS/KG (273-304); Potassium 4.3 MMOL/L (3.5-5.1)
[2018-06-04] MEDS: LEVOTHYROXINE 100 MCG TABLET PO SCH (05:29)
[2018-06-04] MEDS: LOSARTAN 50 MG TABLET PO SCH (08:42)
[2018-06-04] MEDS: NEBIVOLOL 10 MG TABLET PO SCH (08:43)
[2018-06-04] MEDS: amLODIPine 5 MG TABLET PO SCH (08:43)
[2018-06-04] MEDS: SERTRALINE 50 MG TABLET PO SCH (08:43)
[2018-06-04] MEDS: ASPIRIN CHEW 81 MG TABLET PO SCH (08:43)
[2018-06-04] MEDS: NYSTATIN 500,000 UNIT/5 ML UDCUP SWISH/SWAL SCH ×4 (08:44→20:46)
[2018-06-04] MEDS: PANTOPRAZOLE 40 MG TABLET PO SCH (08:44)
[2018-06-04] MEDS: LIDOCAINE 5% PATCH TRANSDERM SCH (08:46)
[2018-06-04] MEDS: FUROSEMIDE 40 MG/4 ML VIAL IV SCH ×2 (08:46→15:46)
[2018-06-04] MEDS: LIDOCAINE 2% VISCOUS 100 ML BOTTLE SWISH/SWAL PRN ×2 (08:47→15:46)
[2018-06-04] MEDS: DIGOXIN 0.125 MG TABLET PO SCH (12:06)
[2018-06-04] MEDS: BUDESONIDE/FORMOTEROL 160-4.5 INHALER 6 GM INH SCH ×2 (12:06→20:45)
[2018-06-04] MEDS: methylPREDNISolone SOD SUC 40 MG/1 ML VIAL IV SCH (12:07)
[2018-06-04] MEDS: RIVAROXABAN 10 MG TABLET PO SCH (20:42)
[2018-06-05] MEDS: methylPREDNISolone SOD SUC 40 MG/1 ML VIAL IV SCH ×2 (00:26→10:55)
[2018-06-05] MEDS: LEVOFLOXACIN INJ 250 MG in PREMIX 1 EACH IV SCH (00:28)
[2018-06-05] MEDS: ALBUTEROL/IPRATROPIUM 3 ML NEB RESP TX SCH ×3 (01:12→13:05)
[2018-06-05 04:26] LABS: Calcium 8.3 MG/DL (8.5-10.1); Osmolality,Calculated 284.7 MOS/KG (273-304); Potassium 4.2 MMOL/L (3.5-5.1)
[2018-06-05] MEDS: LEVOTHYROXINE 100 MCG TABLET PO SCH (06:33)
[2018-06-05] MEDS: BUDESONIDE/FORMOTEROL 160-4.5 INHALER 6 GM INH SCH (09:03)
[2018-06-05] MEDS: amLODIPine 5 MG TABLET PO SCH (09:04)
[2018-06-05] MEDS: LOSARTAN 50 MG TABLET PO SCH (09:05)
[2018-06-05] MEDS: NEBIVOLOL 10 MG TABLET PO SCH (09:05)
[2018-06-05] MEDS: SERTRALINE 50 MG TABLET PO SCH (09:05)
[2018-06-05] MEDS: ASPIRIN CHEW 81 MG TABLET PO SCH (09:05)
[2018-06-05] MEDS: PANTOPRAZOLE 40 MG TABLET PO SCH (09:05)
[2018-06-05] MEDS: LIDOCAINE 5% PATCH TRANSDERM SCH (09:06)
[2018-06-05] MEDS: NYSTATIN 500,000 UNIT/5 ML UDCUP SWISH/SWAL SCH ×3 (09:06→17:05)
[2018-06-05] MEDS: FUROSEMIDE 40 MG TABLET PO SCH ×2 (09:23→17:04)
[2018-06-05] MEDS ORDERED: traMADol 50 MG TABLET PO SCH (09:30)
[2018-06-05] MEDS: FUROSEMIDE 40 MG/4 ML VIAL IV SCH (09:31)
[2018-06-05] MEDS: DIGOXIN 0.125 MG TABLET PO SCH (13:14)
[2018-06-05] MEDS ORDERED: MYLANTA/LIDO VISC/DIPH 300 ML BOTTLE SWISH/SWAL SCH (15:00)
[2018-06-05 17:06] VITALS: BP 117/56
== END 2018-06-05 16:30 | DRG 291 ==
LOC: EDBD → EDUNIT# → N.ED 19:59 → N.EDINP 23:05 → SUATTDRO 23:05 → N.TELEN 23:58
PROVIDERS: ADMIT Internal Medicine; ATTEND Emergency Medicine